=== PATIENT | male | born 1960 | race Caucasian/White ===

== ENCOUNTER 2018-01-17 11:57 | Emergency (ER) | payer MEDICAID ==
[~2018-01-17] VITALS: Ht 177.8 cm; Wt 72.6 kg
[2018-01-17 11:57] VITALS: BP_SYST 158
[2018-01-17 12:13] VITALS: BP_SYST 148
== END 2018-01-17 12:13 ==
LOC: SED 11:57
DX: Z02.89 Encounter for other administrative examinations (principal); I10 Essential (primary) hypertension
CPT/HCPCS: 99283